=== PATIENT | male | born 1985 | race Caucasian/White ===

== ENCOUNTER 2018-02-16 15:41 | Emergency (ER) | payer SELFPAY ==
[2018-02-16 16:14] VITALS: BP 125/52
--- NOTE | 2018-02-16 17:14 | UC ---
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 mild pain - History Of Current Complaint Chief Complaint: UCUpperExtremity Stated Complaint: WC-RT THUMB LAC Time Seen by Provider: 02/16/18 16:53 Hx Obtained From: Patient Onset/Duration: Sudden Onset, Lasting Hours Severity Initially: Moderate Severity Currently: Mild Pain Intensity: 2 Pain Scale Used: 0-10 Numeric Character Of Pain: Sharp Aggravating Factor(s): Other - touch Alleviating Factor(s): Elevation Associated Signs And Symptoms: Positive: Negative Related History: Occupational Injury, Dominant Hand Left - Allergies/Home Medications Allergies/Adverse Reactions: Allergies Allergy/AdvReac Type Severity Reaction Status Date / Time No Known Allergies Allergy Verified 02/16/18 16:14 Home Medications: Home Medications NK [No Home Medications Reported] 02/16/18 [History Confirmed 02/16/18] PMH/Surg Hx/FS Hx/Imm Hx Previously Healthy: Yes - Surgical History Surgical History: None - Family History Known Family History: Positive: Hypertension - Social History Alcohol Use: None Substance Use Type: None Smoking Status (MU): Current Every Day Smoker Type: Cigarettes Amount Used/How Often: 1/2 PPD Household Exposure Type: Cigarettes Review of Systems Constitutional: Negative Skin: Negative Eyes: Negative ENT: Negative Respiratory: Negative Cardiovascular: Negative Gastrointestinal: Negative Genitourinary: Negative Motor: Negative Neurovascular: Negative Musculoskeletal: Negative Neurological: Negative Psychological: Negative Is Patient Immunocompromised?: No All Other Systems Reviewed And Are Negative: Yes Physical Exam Triage Information Reviewed: Yes Appearance: Well-Appearing, No Pain Distress, Well-Nourished Vital Signs: Initial Vital Signs Temp 98 F 02/16/18 16:09 Pulse 58 02/16/18 16:09 Resp 16 02/16/18 16:09 BP 125/52 02/16/18 16:09 Pulse Ox 98 02/16/18 16:09 Vital Signs Reviewed: Yes Eyes: Positive: Conjunctiva Clear ENT: Positive: Hearing grossly normal. Negative: Nasal congestion, Nasal drainage, TMs normal, Trismus, Muffled voice, Hoarse voice Neck: Positive: Supple Respiratory: Positive: Lungs clear, Normal breath sounds, No respiratory distress, No accessory muscle use Cardiovascular: Positive: RRR, No Murmur Musculoskeletal: Positive: ROM Intact, No Edema Neurological: Positive: Alert Psychological Exam: Normal Skin Exam: Other - avulsion right thumb Hand/Wrist Course/Dx - Differential Dx/Diagnosis Provider Diagnoses: right thumb avulsion injury Discharge - Sign-Out/Discharge Documenting (check all that apply): Discharge - Discharge Plan Condition: Stable Disposition: HOME Patient Education Materials: Skin Avulsion (ED) Referrals: No Primary Care Phys,NOPCP [Primary Care Provider] - Additional Instructions: leave current dressing on for 1-2 days then gently clean twice daily with soap and water thin film of antibiotic oint dressing I suggest follow up with Dr. Denson if concerned about healing or infection - Billing Disposition and Condition Condition: STABLE Disposition: HOME Images Hands: 1 - superficial avulsion/no bone exposure/some nail involvement/currently no bleeding/< 1 cm x 1 cm
== END 2018-02-16 17:33 | disposition home or self-care (01) ==
LOC: UCCORT 15:41
DX: S61.001A Unspecified open wound of right thumb without damage to nail, initial encounter (principal); F17.210 Nicotine dependence, cigarettes, uncomplicated; W45.8XXA Other foreign body or object entering through skin, initial encounter; Y92.9 Unspecified place or not applicable; Y99.0 Civilian activity done for income or pay
CPT/HCPCS: 99202; G0463

== ENCOUNTER 2018-06-20 11:15 | Emergency (ER) | payer SELFPAY ==
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
[2018-06-20 11:41] VITALS: BP 119/73
--- NOTE | 2018-06-20 12:27 | RAD ---
HISTORY: injury, swelling COMPARISONS: None VIEWS: 3, of the fourth digit of the left hand FINDINGS: BONE DENSITY: Normal. BONES: There are fractures of the dorsomedial (dorsal-ulnar) and volar-medial (volar-radial) aspects of the base of the middle phalanx of the fourth digit , with articular extension. JOINTS: There is no arthropathy. ALIGNMENT: There is no dislocation. SOFT TISSUES: There is soft tissue swelling of the fourth PIP joint. OTHER FINDINGS: None. IMPRESSION: FRACTURES OF THE DORSAL AND VOLAR ASPECTS OF THE BASE OF THE MIDDLE PHALANX OF THE FOURTH DIGIT WITH ARTICULAR EXTENSION
== END 2018-06-20 12:09 | disposition home or self-care (01) ==
LOC: UCCORT 11:15
DX: S62.625A Displaced fracture of middle phalanx of left ring finger, initial encounter for closed fracture (principal); S62.615A Displaced fracture of proximal phalanx of left ring finger, initial encounter for closed fracture; X58.XXXA Exposure to other specified factors, initial encounter; Y93.16 Activity, rowing, canoeing, kayaking, rafting and tubing; Y92.838 Other recreation area as the place of occurrence of the external cause
CPT/HCPCS: 73140; 99212; G0463